=== PATIENT | female | born 1935 | race Caucasian/White ===

== ENCOUNTER → 2017-09-18 | Outpatient (CLI) | payer MEDICARE ==
--- NOTE | 2017-09-18 10:10 | FL ---
EXAMINATION TYPE: FL barium swallow DATE OF EXAM: 09/18/2017 COMPARISON: NONE HISTORY: Dysphasia burning sensation sternal notch TECHNIQUE: A double air contrast UGI study is performed. FINDINGS: Esophagus dilates to normal caliber has normal contour to the gastroesophageal junction. Patient is r eported to be status post Ford fundoplication. Significant hesitancy passing through the gastroesop hageal junction is not evident. Note is made of secondary contraction in the horizontal drinking posi tion with incomplete stripping of the esophageal bolus. IMPRESSIONS: 1. Post Ford fundoplication changes without significant stenosis. 2. Mild presbyesophagus with secondary contractions evident during the exam
== END | disposition home or self-care (01) ==
LOC: RADFLWHC 08:24
PROVIDERS: ATTEND Surgery
DX: K22.8 Other specified diseases of esophagus (principal); R13.10 Dysphagia, unspecified; K21.9 Gastro-esophageal reflux disease without esophagitis
CPT/HCPCS: 74220

== ENCOUNTER → 2017-09-26 | Day surgery (SDC) | payer MEDICARE ==
[2017-09-23 15:44] VITALS: BMI 42.0
[~2017-09-26] MED LIST: GLYCOPYRROLATE 0.2 MG/ML 2 ML VIAL ONE; LACTATED RINGERS 1,000 ML IV SCH; LIDOCAINE 1% 20 ML VIAL (10MG/ML) FOR IV START INTRADERMA ONE; PROPOFOL 10 MG/ML 20 ML VIAL IV ONE; fentaNYL (PF) 50 MCG/ML 2 ML AMP ONE
[2017-09-26 09:09] VITALS: TEMP 97.1
--- NOTE | 2017-09-26 09:26 | P.GSHP ---
History of Present Illness H&P Date: 09/26/17 Chief Complaint: Dysphagia This a 81-year-old female referred from Dr. jensen. Patient has had complaints of dysphagia. Her recent esophagram shows evidence of presbyesophagus. There is no evidence of obstruction or reflux. There is no evidence of recurrent hiatal hernia. The patient presents today for EGD. 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 yeast infection left arm, Stage 4 kidney disease, urinary leakage-wears pad History of Any Multi-Drug Resistant Organisms: MRSA Date of last positivie culture/infection: 8-10 yrs ago MDRO Source:: left eyebrow Past Surgical History: Adenoidectomy, Section, Cholecystectomy, Hernia Repair, Tonsillectomy Additional Past Surgical History / Comment(s): BILAT CATARACTS, breast biopsy- magdalena,02-22-16 lap heraclio Past Anesthesia/Blood Transfusion Reactions: Previous Problems w/ Anesthesia, Motion Sickness Additional Past Anesthesia/Blood Transfusion Reaction / Comment(s): novocaine passed out in dentist chair- rapid heart rate Smoking Status: Never smoker - Past Family History Mother Family Medical History: Pulmonary Embolus Father Family Medical History: AFIB Additional Family Medical History / Comment(s): cabg Medications and Allergies Home Medications Medication Instructions Recorded Confirmed Type Benzonatate [Tessalon Perles] 100 mg PO BID PRN 01/31/16 09/26/17 History Metoprolol Tartrate [Metoprolol 25 mg PO BID 01/31/16 09/26/17 History Tartrate] Spironolactone [Spironolactone] 50 mg PO BID 01/31/16 09/26/17 History Ergocalciferol [Vitamin D2] 50,000 unit PO TH 02/16/16 09/26/17 History Ipratropium-Albuterol Nebulize 3 ml INHALATION RT-BID 02/16/16 09/26/17 History [Duoneb 0.5 mg-3 mg/3 ml Soln] Allergies Allergy/AdvReac Type Severity Reaction Status Date / Time Iodine and Iodide Containing Allergy Rash/Hives Verified 09/26/17 08:58 Produc Penicillins Allergy Dyspnea Verified 09/26/17 08:58 Sulfa (Sulfonamide Allergy Rash/Hives Verified 09/26/17 08:58 Antibiotics) Surgical - Exam Vital Signs Temp Pulse Resp BP Pulse Ox 97.1 F L 67 18 155/80 99 09/26/17 09:08 09/26/17 09:08 09/26/17 09:08 09/26/17 09:08 09/26/17 09:08 - General well developed, no distress - Eyes PERRL - ENT normal pinna - Neck no masses - Respiratory normal expansion - Cardiovascular Rhythm: regular - Abdomen Abdomen: soft, non tender Assessment and Plan Assessment: Dysphagia. We'll perform EGD.
[2017-09-26 10:09] VITALS: BP 136/85; PULSE 73; RESP 16
--- NOTE | 2017-09-26 10:44 | P.OP ---
Date of Procedure: 09/26/17 Preoperative Diagnosis: Dysphagia Postoperative Diagnosis: Mild antral gastritis Mild esophagitis No evidence of significant esophageal stricture. Procedure(s) Performed: EGD Anesthesia: MAC Surgeon: Lenard Bedoya Pathology: other (Antrum) Condition: stable Disposition: PACU Description of Procedure: Patient's placed on the endoscopy table in the lateral position. She received IV sedation. The gastroscope placed oropharynx and passed in the esophagus and into the stomach. Scope was then placed through the pylorus. The first and second portion of the duodenum. Normal. Scope was then brought back the antrum this. Mildly inflamed. A biopsies performed. The scope was then retroflexed and remainder of the stomach appeared normal. The patient did not have any evidence of a hiatal hernia. The GE junction was at 39 cm. The distal esophagus appeared mildly inflamed. The patient's symptoms and dysphagia a 20 mm balloon was quite placed across the GE junction. There did not appear to be evidence of a significant stricture. At this point the balloon was inflated and scope was withdrawn. There is no injury to the stomach or esophagus. The proximal esophagus. Normal. Scope was withdrawn for patient.
== END ==
LOC: ORWHC2ENDO 08:08
PROVIDERS: ATTEND Surgery
DX: R13.10 Dysphagia, unspecified (principal); K29.50 Unspecified chronic gastritis without bleeding; K21.0 Gastro-esophageal reflux disease with esophagitis; J45.909 Unspecified asthma, uncomplicated; Z86.718 Personal history of other venous thrombosis and embolism; I12.9 Hypertensive chronic kidney disease with stage 1 through stage 4 chronic kidney disease, or unspecified chronic kidney disease; N18.4 Chronic kidney disease, stage 4 (severe); R05 Cough; Z77.120 Contact with and (suspected) exposure to mold (toxic); Z79.899 Other long term (current) drug therapy; Z88.0 Allergy status to penicillin; Z88.2 Allergy status to sulfonamides; Z91.041 Radiographic dye allergy status
CPT/HCPCS: 88305; 88342; 43239; 43249; J3010; J2704; C1726

== ENCOUNTER → 2017-12-19 | Outpatient (CLI) | payer MEDICARE ==
--- NOTE | 2017-12-22 10:14 | MM ---
Reason for exam: screening (asymptomatic). Last mammogram was performed 2 years and 6 months ago. History: Patient is postmenopausal. Excisional biopsy of the left breast. 2 excisional biopsies of the right breast. Took estrogen for 7 months beginning at age 58. Took progesterone for 7 months beginning at age 58. Physical Findings: A clinical breast exam by your physician is recommended on an annual basis and results should be correlated with mammographic findings. MG 3D Screening Mammo W/Cad Bilateral CC and MLO view(s) were taken. Prior study comparison: June 16, 2015, right breast MG work up mamm w CAD RT. June 13, 2015, bilateral MG screening mammo w CAD. There are scattered fibroglandular densities. Stable vascular calcifications. There is no discrete abnormality. No significant changes when compared with prior studies. ASSESSMENT: Benign, BI-RAD 2 RECOMMENDATION: Routine screening mammogram of both breasts in 1 year. Manage patient on a clinical basis.
== END | disposition home or self-care (01) ==
LOC: RADMAMWWP 11:13
PROVIDERS: ATTEND Family Medicine
DX: Z12.31 Encounter for screening mammogram for malignant neoplasm of breast (principal)
CPT/HCPCS: 77063; 77067

== ENCOUNTER → 2019-06-23 | Outpatient (CLI) | payer MEDICARE ==
--- NOTE | 2019-06-23 17:57 | MR ---
EXAMINATION TYPE: MR knee RT wo con DATE OF EXAM: 06/23/2019 COMPARISON: NONE HISTORY: Rt knee pain and unstable knee after trauma per order. Pain and swelling after twisting inju ry 3 weeks ago per patient. TECHNIQUE: Multiplanar, multisequence images of the knee is performed without IV contrast. FINDINGS: MEDIAL MENISCUS: Anterior horn is intact without tear. Posterior horn shows irregular signal extendin g to central body where there is emaciation seen best sagittal image 7 consistent with full-thickness tear. LATERAL MENISCUS: Anterior and posterior horns are intact without tear. CRUCIATE LIGAMENTS: The anterior and posterior cruciate ligaments are intact. Some increased signal s een distally sagittal image 16 in the ACL. COLLATERAL LIGAMENTS: The medial collateral ligament and lateral collateral ligament complex are inta ct and unremarkable. EXTENSOR MECHANISM: Visualized quadriceps and patellar tendons are intact. EFFUSION: No significant suprapatellar joint effusion. POPLITEAL CYST: No popliteal/mason cyst. TRICOMPARTMENT SPACES: Severe patellofemoral compartment narrowing. Mild to moderate medial and later al tibiofemoral compartment narrowing. Minimal tricompartment spurring. 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 No full-thickness loss is seen. Some cartilaginous loss medial tibial femoral compartment without f ocal full-thickness loss. BONE MARROW SIGNAL: No focal abnormal marrow signal is appreciated. OTHER: No additional significant abnormality is appreciated. IMPRESSION: 1. Complex full-thickness tear central body and posterior horn of medial meniscus. 2. 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
== END | disposition home or self-care (01) ==
LOC: RADMRIMAIN 16:58
PROVIDERS: ATTEND Family Medicine
DX: S83.231A Complex tear of medial meniscus, current injury, right knee, initial encounter (principal); M17.11 Unilateral primary osteoarthritis, right knee

== ENCOUNTER 2021-02-13 16:41 | Observation (INO) | payer MEDICARE, OTHER ==
--- NOTE | 2021-02-13 18:27 | ED ---
General Adult HPI - General Chief complaint: Neuro Symptoms/Deficit Stated complaint: rt sided vision loss Time Seen by Provider: 02/13/21 17:34 Source: patient, RN notes reviewed Mode of arrival: wheelchair Limitations: no limitations - History of Present Illness Initial comments: 85-year-old white female, alert and oriented 4, comes to the emergency room with complaints of visual loss in right eye at 1530 today while speaking to a canal tender at home. Patient states that initially she started to see circles of lights surrounding the canal tender's head which progressed to a lin cloud and then progressed to complete blackness in right eye only. Patient states that she had no other symptoms, denied headache or weakness. Patient states vision loss last ed about 15 minutes and then completely resolved. Patient states for several months she's been having double vision only when she is staring straight ahead but if she tips her head back or closes one eye vision resolves. Patient states for several years sees use readers but has not seen an palliative care nurse practitioner Patient recently seen her scientific writer Dr. Camarena for chest pain that has not received her labs ahead appointment with him tomorrow. Currently vital signs are stable and patient is asymptomatic with no pain or focal motor deficits. -: hour(s) (3) Time: 15:30 Severity scale (1-10): 0 Associated Symptoms: denies other symptoms - Related Data Home Medications Medication Instructions Recorded Confirmed Spironolactone 50 mg PO BID 01/31/16 02/13/21 Acetaminophen Tab [Tylenol Tab] 1,000 mg PO Q6HR PRN 02/13/21 02/13/21 Albuterol Sulfate [Accuneb] 0.63 mg INHALATION RT-TID PRN 02/13/21 02/13/21 Aspirin EC [Ecotrin Low Dose] 81 mg PO DAILY 02/13/21 02/13/21 Melatonin 20 mg PO HS PRN 02/13/21 02/13/21 Metoprolol Succinate (ER) [Toprol 50 mg PO DAILY 02/13/21 02/13/21 Xl] Nitroglycerin Sl Tabs [Nitrostat] 0.4 mg SUBLINGUAL Q5M PRN 02/13/21 02/13/21 Rosuvastatin [Crestor] 10 mg PO HS 02/13/21 02/13/21 Ubidecarenone [Co Q-10] 200 mg PO HS 02/13/21 02/13/21 Allergies Allergy/AdvReac Type Severity Reaction Status Date / Time Iodine and Iodide Containing Allergy Rash/Hives Verified 02/13/21 18:41 Produc Penicillins Allergy Dyspnea Verified 02/13/21 18:41 Sulfa (Sulfonamide Allergy Rash/Hives Verified 02/13/21 18:41 Antibiotics) Patient : No Review of Systems ROS Statement: Those systems with pertinent positive or pertinent negative responses have been documented in the HPI. ROS Other: All systems not noted in ROS Statement are negative. 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), hx ulcer, hiatal hernia, yeast infection left arm, "kidneys functioning at 34", urinary leakage-wears pad History of Any Multi-Drug Resistant Organisms: MRSA Date of last positivie culture/infection: 8-10 yrs ago MDRO Source:: left eyebrow Past Surgical History: Section, Cholecystectomy, Tonsillectomy Additional Past Surgical History / Comment(s): BILAT CATARACTS, breast biopsy-magdalena,6-9-16 lap heraclio Past Anesthesia/Blood Transfusion Reactions: Previous Problems w/ Anesthesia, Motion Sickness Additional Past Anesthesia/Blood Transfusion Reaction / Comment(s): novocaine passed out in dentist chair- rapid heart rate Past Psychological History: No Psychological Hx Reported Smoking Status: Never smoker Past Alcohol Use History: None Reported Past Drug Use History: None Reported - Past Family History Mother Family Medical History: Pulmonary Embolus Father Family Medical History: AFIB Additional Family Medical History / Comment(s): cabg General Exam Limitations: no limitations General appearance: alert, in no apparent distress Head exam: Present: atraumatic, normocephalic, normal inspection Eye exam: Present: normal appearance, PERRL, EOMI. Absent: scleral icterus, conjunctival injection, periorbital swelling Pupils: Present: normal accommodation ENT exam: Present: normal exam, normal oropharynx, mucous membranes moist Neck exam: Present: normal inspection, full ROM. Absent: tenderness, meningismus, lymphadenopathy, thyromegaly Respiratory exam: Present: normal lung sounds bilaterally. Absent: respiratory distress, wheezes, rales, rhonchi, stridor, chest wall tenderness, accessory mus susan use, decreased breath sounds Cardiovascular Exam: Present: regular rate, normal rhythm, normal heart sounds. Absent: systolic murmur, diastolic murmur, rubs, gallop, clicks GI/Abdominal exam: Present: soft, normal bowel sounds. Absent: distended, tenderness, guarding, rebound, rigid Rectal exam: Present: deferred Extremities exam: Present: normal inspection, full ROM, normal capillary refill. Absent: tenderness, pedal edema, joint swelling, calf tenderness Back exam: Present: normal inspection, full ROM. Absent: tenderness, CVA tenderness (R), CVA tenderness (L), muscle spasm, paraspinal tenderness, vertebral tenderness Neurological exam: Present: alert, oriented X3, CN II-XII intact. Absent: motor sensory deficit Expanded Neurological exam: Present: protecting the airway. Absent: inattentive, evp general counsel tive aphasia, expressive aphasia, total aphasia, tremor Patient oriented to: Present: person, place, time Speech: Present: fluid speech Cranial nerves: EOM's Intact: Normal, Gag Reflex: Normal, Tongue Deviation: Normal, Facial Sensation: Normal, Facial Palsy with Forehead Movement: Normal, Facial Palsy without Forehead Movement: Normal Cerebellar function: Finger to Nose: Normal, Heel to Jay: Normal Motor strength exam: RUE: 5, LUE: 5, RLE: 5, LLE: 5 Eye Response: (4) open spontaneously Motor Response: (6) obeys commands Verbal Response: (5) oriented Sandee Total: 15 Psychiatric exam: Present: normal affect, normal mood Skin exam: Present: warm, dry, intact, normal color. Absent: rash Course Vital Signs 02/13/21 02/13/21 02/13/21 16:44 18:40 20:08 Temperature 97.7 F 98.2 F Pulse Rate 72 65 64 Respiratory 16 18 16 Rate Blood Pressure 164/73 148/63 138/67 O2 Sat by Pulse 98 99 98 Oximetry EKG Findings - EKG Results: EKG: WNL (Ventricular rate 66, CT interval 0.17, QRS 0.86, QTC 0.434; sinus rhythm) Medical Decision Making - Medical Decision Making Patient had complete loss of vision in right eye for approximately 15 minutes at home at 1530 today, which resolved prior to arrival to the emergency room. Patient has been asymptomatic while in the emergency room. CT shows atrophy with periventricular white matter ischemic type changes and old left caudate lacunar infarct, no ICB, no lesions. chest x-ray shows no acute pulmonary process. Troponin is negative at 0.012, glucose is 83. BUN of 23 and creatinine is 1.43 patient states that she cannot tolerate IV contrast is severe ALLERGIC reactions and swelling. Patient will be admitted to Dr. Potter with neurology on consult. Case discussed with Dr. Cedeno. Patient agreeable to being admitted. - Lab Data Result diagrams: 02/13/21 18:30 02/13/21 18:30 Lab Results 02/13/21 02/13/21 02/13/21 Range/Units 18:30 18:30 18:30 WBC 7.0 (3.8-10.6) k/uL RBC 4.24 (3.80-5.40) m/uL Hgb 13.5 (11.4-16.0) gm/dL Hct 43.5 (34.0-46.0) % MCV 102.5 H (80.0-100.0) fL MCH 31.8 (25.0-35.0) pg MCHC 31.0 (31.0-37.0) g/dL RDW 13.6 (11.5-15.5) % Plt Count 162 (150-450) k/uL MPV 9.5 Neutrophils % 65 % Lymphocytes % 24 % Monocytes % 6 % Eosinophils % 2 % Basophils % 1 % Neutrophils # 4.5 (1.3-7.7) k/uL Lymphocytes # 1.7 (1.0-4.8) k/uL Monocytes # 0.4 (0-1.0) k/uL Eosinophils # 0.2 (0-0.7) k/uL Basophils # 0.0 (0-0.2) k/uL Macrocytosis Slight PT 9.7 (9.0-12.0) sec INR 0.9 (<1.2) APTT 21.7 L (22.0-30.0) sec Sodium 138 (137-145) mmol/L Potassium 4.7 (3.5-5.1) mmol/L Chloride 104 (98-107) mmol/L Carbon Dioxide 26 (22-30) mmol/L Anion Gap 8 mmol/L BUN 23 H (7-17) mg/dL Creatinine 1.43 H (0.52-1.04) mg/dL Est GFR (CKD-EPI)AfAm 38 (>60 ml/min/1.73 sqM) Est GFR (CKD-EPI)NonAf 33 (>60 ml/min/1.73 sqM) Glucose 83 (74-99) mg/dL Calcium 9.7 (8.4-10.2) mg/dL Total Bilirubin 0.3 (0.2-1.3) mg/dL AST 30 (14-36) U/L ALT 22 (4-34) U/L Alkaline Phosphatase 82 (38-126) U/L Troponin I (0.000-0.034) ng/mL Total Protein 6.6 (6.3-8.2) g/dL Albumin 4.4 (3.5-5.0) g/dL 02/13/21 Range/Units 18:30 WBC (3.8-10.6) k/uL RBC (3.80-5.40) m/uL Hgb (11.4-16.0) gm/dL Hct (34.0-46.0) % MCV (80.0-100.0) fL MCH (25.0-35.0) pg MCHC (31.0-37.0) g/dL RDW (11.5-15.5) % Plt Count (150-450) k/uL MPV Neutrophils % % Lymphocytes % % Monocytes % % Eosinophils % % Basophils % % Neutrophils # (1.3-7.7) k/uL Lymphocytes # (1.0-4.8) k/uL Monocytes # (0-1.0) k/uL Eosinophils # (0-0.7) k/uL Basophils # (0-0.2) k/uL Macrocytosis PT (9.0-12.0) sec INR (<1.2) APTT (22.0-30.0) sec Sodium (137-145) mmol/L Potassium (3.5-5.1) mmol/L Chloride (98-107) mmol/L Carbon Dioxide (22-30) mmol/L Anion Gap mmol/L BUN (7-17) mg/dL Creatinine (0.52-1.04) mg/dL Est GFR (CKD-EPI)AfAm (>60 ml/min/1.73 sqM) Est GFR (CKD-EPI)NonAf (>60 ml/min/1.73 sqM) Glucose (74-99) mg/dL Calcium (8.4-10.2) mg/dL Total Bilirubin (0.2-1.3) mg/dL AST (14-36) U/L ALT (4-34) U/L Alkaline Phosphatase (38-126) U/L Troponin I <0.012 (0.000-0.034) ng/mL Total Protein (6.3-8.2) g/dL Albumin (3.5-5.0) g/dL Disposition Clinical Impression: TIA (transient ischemic attack) Disposition: ADMITTED IP TO THIS HOSP Condition: Good Referrals: Francine Rosas MD [Primary Care Provider] - 1-2 days Decision Date: 02/13/21 Decision Time: 21:47
[2021-02-13 18:39] LABS: Basophils % (A) 1 %; Eosinophils # (A) 0.2 k/uL (0-0.7); Eosinophils % (A) 2 %; HCT 43.5 % (34.0-46.0); HGB 13.5 gm/dL (11.4-16.0); Lymphocytes # (A) 1.7 k/uL (1.0-4.8); Lymphocytes % (A) 24 %; MCH 31.8 pg (25.0-35.0); MCV 102.5 fL (80.0-100.0); Macrocytosis Slight; Mean Platelet Volume 9.5; Monocytes # (A) 0.4 k/uL (0-1.0); Monocytes % (A) 6 %; Neutrophils # (A) 4.5 k/uL (1.3-7.7); Neutrophils % (A) 65 %; Platelet Count 162 k/uL (150-450); RBC 4.24 m/uL (3.80-5.40); RDW 13.6 % (11.5-15.5)
[2021-02-13 18:46] LABS: Albumin 4.4 g/dL (3.5-5.0); Calcium 9.7 mg/dL (8.4-10.2); Potassium 4.7 mmol/L (3.5-5.1); Total Bilirubin 0.3 mg/dL (0.2-1.3); Total Protein 6.6 g/dL (6.3-8.2)
[2021-02-13 19:03] LABS: INR 0.9 (<1.2); Partial Thromboplastin Time 21.7 sec (22.0-30.0); Prothrombin Time 9.7 sec (9.0-12.0)
--- NOTE | 2021-02-13 19:44 | CT ---
EXAMINATION TYPE: CT brain wo con DATE OF EXAM: 02/13/2021 COMPARISON: 09/21/2012 INDICATION: visual changes, no head injury DLP: 1090.4 mGycm, Automated exposure control for dose reduction was used. CONTRAST: None CT of the brain is performed utilizing 3 mm thick sections through the posterior fossa and 3 mm thick sections through the remaining calvarium. Study is performed within 24 hours of arrival to the hosp [place]. No abnormal hyperdensity is present to suggest an acute intracranial hemorrhage. No mass lesion is evident. No acute infarcts are evident. There is an old lacunar infarct in the left caudate head. This may hav e been present 2012. Periventricular white matter hypodensity is present, likely on the basis of trailer steerer manish white matter ischemic changes. Ventricles and sulci are mildly prominent for the patient age. Paranasal sinuses and mastoid air cells within the [id number] are clear. IMPRESSIONS: 1. Atrophy with periventricular white matter ischemic type changes. 2. 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
--- NOTE | 2021-02-13 20:47 | XR ---
EXAMINATION TYPE: XR chest 2V DATE OF EXAM: 02/13/2021 COMPARISON: 11/10/2013 INDICATION: Altered mental status TECHNIQUE: Frontal and lateral views of the chest are obtained. FINDINGS: The heart size is normal. The pulmonary vasculature is normal. The lungs are clear. IMPRESSION: 1. No acute pulmonary process.
[2021-02-13] MEDS ORDERED: NALOXONE 0.4 MG/ML 1 ML VIAL IV PRN (21:47)
[2021-02-13] MEDS ORDERED: ATORVASTATIN 80 MG TAB PO STA (21:50)
[2021-02-13] MEDS: SODIUM CHLORIDE 0.9% 1,000 ML IV SCH (22:18)
[2021-02-13] MEDS: CLOPIDOGREL 75 MG TAB PO SCH (22:20)
[2021-02-14] MEDS: SPIRONOLACTONE 25 MG TAB PO SCH ×2 (09:02→22:00)
[2021-02-14] MEDS: METOPROLOL SUCCINATE (ER) 50 MG TAB.ER.24H PO SCH (09:02)
[2021-02-14] MEDS: ASPIRIN 81 MG PO SCH (09:03)
[2021-02-14] MEDS: SODIUM CHLORIDE 0.9% 1,000 ML IV SCH (13:48)
[2021-02-14] MEDS: PANTOPRAZOLE 40 MG TABLET PO SCH (13:50)
--- NOTE | 2021-02-14 15:08 | P.CNNES ---
History of Present Illness Consult date: 02/14/21 Requesting physician: Len Sainz Reason for Consult: TIA History of Present Illness: Patient is a 85-year-old female came to the hospital yesterday at 4:41 PM for acute loss of vision right eye. Patient states that she was talking to her plant and instrument engineer at around 3 PM, when she suddenly noticed a funny feeling in her vision. When she looked at him, it appeared his face was coming apart in pieces. Then she saw polka dots moving around the visual field in the right eye. Her vision started getting worse and then everything turned black. She closed her left eye and she could not see anything. When she closed the right eye, she was able to see everything. It was monocular blindness right eye. The symptoms lasted for 10-15 minutes. It started slowly going away and symptoms completely went away. She had no headache or any neurological symptoms whatsoever. Patient got concerned and came to the ER. Vital signs on arrival blood pressure 164/73, pulse is 72, temperature 97.7 CT head showed atrophy with periventricular white matter ischemic Changes. 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 Chest x-ray showed no acute process. EKG shows normal sinus rhythm. Blood test shows normal CBC with elevated MCV 102.5. PT/PTT normal. Chem-20 is significant only for BUN 23, creatinine 1.43. Troponin negative. Fuller virus PCR negative. Patient had an normal MRA of [place] on 06/06/2015 performed for he adache and diplopia. Her MRI of the brain was also normal except for some small periventricular white matter changes. Patient takes Crestor 10 mg, aspirin 81 mg, metoprolol XL 50 mg daily, spironola ctone 50 mg twice a day and albuterol. Patient in the ER has been started on Plavix 75 mg as well. Patient says that she has history of diplopia off and on for last 1 year. It used to be sporadic but not occurring every day. If she tilts her head backwards and puts her head in certain way, she sees double. Only if she has to look straight ahead to have a single vision. Patient apparently had MRI of the brain performed in 2014 for double vision. Patient does not remember having double vision for that long period of time. She had episodes in the past that consisted of blurred vision like looking through water. She denies any history of migraines. Patient states that about 4 weeks ago she was started on aspirin 81 mg daily by her veterinary virus serum inspector as she was diagnosed with a possible silent AR. Patient wears glasses for reading. She has not seen any metal pattern maker for her intermittent double vision. Patient denies diabetes. She does have hypertension. Never smoked does not drink alcohol. Patient is ALLERGIC to iodine containing dyes. Review of Systems as above in detail. All other review of systems completely unremarkable. Denies any chest pain shortness of breath wheezing or cough. Denies any slurred speech facial droop. Denies any sore throat, fever or chills. Denies abdominal pain nausea vomiting diarrhea. Denies any leg pain. 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), hx ulcer, hiatal hernia, yeast infection left arm, "kidneys functioning at 34", urinary leakage-wears pad History of Any Multi-Drug Resistant Organisms: MRSA Date of last positivie culture/infection: 8-10 yrs ago MDRO Source:: left eyebrow Past Surgical History: Section, Cholecystectomy, Tonsillectomy Additional Past Surgical History / Comment(s): BILAT CATARACTS, breast biopsy-[place],02-22-16 lap heraclio Past Anesthesia/Blood Transfusion Reactions: Previous Problems w/ Anesthesia, Motion Sickness Additional Past Anesthesia/Blood Transfusion Reaction / Comment(s): novocaine passed out in dentist chair- rapid heart rate Past Psychological History: No Psychological Hx Reported Smoking Status: Never smoker Past Alcohol Use History: None Reported Past Drug Use History: None Reported - Past Family History Mother Family Medical History: Pulmonary Embolus Father Family Medical History: AFIB Additional Family Medical History / Comment(s): cabg Medications and Allergies Home Medications Medication Instructions Recorded Confirmed Type Spironolactone 50 mg PO BID 01/31/16 02/13/21 History Acetaminophen Tab [Tylenol Tab] 1,000 mg PO Q6HR PRN 02/13/21 02/13/21 History Albuterol Sulfate [Accuneb] 0.63 mg INHALATION RT-TID PRN 02/13/21 02/13/21 History Aspirin EC [Ecotrin Low Dose] 81 mg PO DAILY 02/13/21 02/13/21 History Melatonin 20 mg PO HS PRN 02/13/21 02/13/21 History Metoprolol Succinate (ER) [Toprol 50 mg PO DAILY 02/13/21 02/13/21 History Xl] Nitroglycerin Sl Tabs [Nitrostat] 0.4 mg SUBLINGUAL Q5M PRN 02/13/21 02/13/21 History Rosuvastatin [Crestor] 10 mg PO HS 02/13/21 02/13/21 History Ubidecarenone [Co Q-10] 200 mg PO HS 02/13/21 02/13/21 History Allergies Allergy/AdvReac Type Severity Reaction Status Date / Time Iodine and Iodide Containing Allergy Rash/Hives Verified 02/13/21 18:41 Produc Penicillins Allergy Dyspnea Verified 02/13/21 18:41 Sulfa (Sulfonamide Allergy Rash/Hives Verified 02/13/21 18:41 Antibiotics) Physical Examination - Vital Signs Vital Signs: Vital Signs Temp Pulse Resp BP Pulse Ox 02/14/21 08:08 97.9 F 66 18 126/58 97 02/14/21 06:43 98.0 F 71 18 109/49 98 02/14/21 01:08 98.1 F 67 18 135/56 98 02/13/21 23:01 67 18 132/75 97 02/13/21 20:08 64 16 138/67 98 02/13/21 18:40 98.2 F 65 18 148/63 99 02/13/21 16:44 97.7 F 72 16 164/73 98 Intake and Output 02/13/21 02/14/21 02/14/21 22:59 06:59 14:59 Other: Weight 102.058 kg Patient is an elderly female, very pleasant, in no acute distress. Patient is alert awake oriented to time place and person. Speech and language functions are normal. Attention, concentration and fund of knowledge is adequate. On cranial examination, pupils are equal in size, round and reacting to light, visual fernandez are full on confrontation, with no neglect on double simultaneous stimulation, extraocular muscles are intact with no nystagmus. Patient was sometimes seeing double vision with the lateral gaze mainly on the left. Face is symmetric, tongue protrudes to the midline. Palatal elevation and sensation normal, hearing is moderate to severely decreased for finger tapping bilatera lly, left worse than right. 4 usual conversation is is mildly decreased. Facial sensation normal. Shoulder shrug normal. On muscle strength testing, there is no pronator drift and the strength is normal in arms and legs distally and proximally. Deep tendon reflexes are 1 in the upper and lower limbs and plantars downgoing. Sensory to touch is equal with no neglect. Cerebellar function showed no ataxia for [id number] testing. No dysdiadochokinesia. Tone and bulk of muscles normal. Gait deferred. Patient has no problems with gait otherwise. Does not use any device. On general examination, there is no carotid bruit or murmur, S1-S2 audible. Abdomen is soft nontender. Chest is clear. Peripheral pulses are present. Patient has mild peripheral edema. Results - Laboratory Findings CBC and BMP: 02/13/21 18:30 02/13/21 18:30 Abnormal Lab Findings: Abnormal Labs 02/13/21 02/13/21 02/13/21 18:30 18:30 18:30 MCV 102.5 H APTT 21.7 L BUN 23 H Creatinine 1.43 H Assessment and Plan Assessment: * Amaurosis fugax, right eye, symptoms resolved in 10-15 minutes. Need further workup to evaluate for embolic source. * Long-standing history of intermittent diplopia, unclear cause. * Macrocytosis * Hypertension * Coronary artery disease * Hyperlipidemia * Mild renal insufficiency Plan: * Patient will undergo MRI of the brain to rule out CVA. MRA of the head to rule out any aneurysm or other intracranial atherosclerotic disease. * Carotid Doppler to rule out stenosis. * 2-D echo with bubble study to rule out PFO or other embolic source. * Fasting a.m. lipid panel, hemoglobin A1c. * Patient has macrocytosis, we will check B12 and folate. * Agree with starting dual antiplatelet medications with aspirin 81 mg and Plavix 75 mg. * We will also check acetylcholine receptor antibodies rule out ocular myasthenia. * Patient will need ophthalmology consultation as well. May get it as outpatient.
--- NOTE | 2021-02-14 17:05 | US ---
EXAMINATION TYPE: US carotid duplex BILAT DATE OF EXAM: 02/14/2021 COMPARISON: 06/13/2015 CLINICAL HISTORY: TIA, amaurosis fugax, right eye. TIA EXAM MEASUREMENTS: RIGHT: Peak Systolic Velocity (PSV) cm/sec ----- Right CCA: 81.3 ----- Right ICA: 63.8 ----- Right ECA: 100.2 ICA/CCA ratio: 0.8 RIGHT: End Diastole cm/sec ----- Right CCA: 14.4 ----- Right ICA: 10.0 ----- Right ECA: 100.2 LEFT: Peak Systolic Velocity (PSV) cm/sec ----- Left CCA: 59.5 ----- Left ICA: 71.1 ----- Left ECA: 49.3 ICA/CCA ratio: 1.2 LEFT: End Diastole cm/sec ----- Left CCA: 11.5 ----- Left ICA: 14.4 ----- Left ECA: 0 VERTEBRALS (direction of flow): Right Vertebral: Antegrade Left Vertebral: Antegrade Rhythm: Normal No evidence of hemodynamically significant stenosis of the common or internal carotid arteries. There is mild atherosclerotic plaque at the bilateral common carotid artery bifurcations. Antegrade flow a t the vertebral arteries. IMPRESSION: 1. Less than 50% stenosis of the bilateral internal carotid arteries. Mild atherosclerotic plaque at the bilateral common carotid artery bifurcations. No evidence of hemodynamically significant stenosis . Criteria for Assigning % of Stenosis / Diameter reduction (Estimation based on the indirect measurements of the internal carotid artery velocities (ICA PSV). 1. Normal (no stenosis)=ICA PSV < 125 cm/s: ratio < 2.0: ICA EDV<40 cm/s. 2. Less than 50% stenosis=ICA PSV < 125 cm/s: ratio < 2.0: ICA EDV<40 cm/s. 3. 50 to 69% stenosis=ICA PSV of 125 to 230 cm/s: ration 2.0 ? 4.0: ICA EDV 40-100 cm/s. 4. Greater than 70% stenosis to near occlusion= ICA PSV > 230 cm/s: ratio > 4.0: ICA EDV > 100 cm/s. 5. Near occlusion= ICA PSV velocities may be low or undetectable: variable ratio and ICA EDV. 6. Total occlusion=unable to detect flow.
[2021-02-14] MEDS ORDERED: PANTOPRAZOLE 40 MG TABLET PO SCH (17:30)
[2021-02-14] MEDS ORDERED: NON FORMULARY DRUG (Ubidecarenone [Co Q-10] 100 MG Capsule) PO SCH (21:00)
[2021-02-14] MEDS ORDERED: ATORVASTATIN 80 MG TAB PO SCH (21:00)
[2021-02-14] MEDS: CLOPIDOGREL 75 MG TAB PO SCH (22:00)
--- NOTE | 2021-02-14 23:20 | P.HPIM ---
History of Present Illness H&P Date: 02/14/21 Chief Complaint: loss of vision Karli Hughes is an 85 yo F with PMH of HLD, CKD who presented to the ED after experiencing transient R sided blindness. She states she was at her weight inspector's talking with him when she noticed he became fuzzy and like static and then his head deconstructed then the rest of him. She tried closing her eyes and when she reopened them had complete R sided blindness. Denies any dizziness, diaphoresis, palpitations or weakness. Symptoms resolved on their own, she called her PCP and was instructed to come to the hospital. On presentation BP stable, labs significant for Cr 1.4. CT head no acute process. Review of Systems All systems: negative Constitutional: Denies chills, Denies fever Eyes: denies blurred vision, denies pain Ears, nose, mouth and throat: Denies headache, Denies sore throat Cardiovascular: Denies chest pain, Denies shortness of breath Respiratory: Denies cough Gastrointestinal: Denies abdominal pain, Denies diarrhea, Denies nausea, Denies vomiting Genitourinary: Denies dysuria, Denies hematuria Musculoskeletal: Denies myalgias Integumentary: Denies pruritus, Denies rash Neurological: Reports double vision, Reports visual changes, Denies numbness, Denies vertigo, Denies weakness Psychiatric: Denies anxiety, Denies depression Endocrine: Denies fatigue, Denies weight change 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), hx ulcer, hiatal hernia, yeast infection left arm, "kidneys functioning at 34", urinary leakage-wears pad History of Any Multi-Drug Resistant Organisms: MRSA Date of last positivie culture/infection: 8-10 yrs ago MDRO Source:: left eyebrow Past Surgical History: Section, Cholecystectomy, Tonsillectomy Additional Past Surgical History / Comment(s): BILAT CATARACTS, breast biopsy-[place],6-9-16 lap heraclio Past Anesthesia/Blood Transfusion Reactions: Previous Problems w/ Anesthesia, Motion Sickness Additional Past Anesthesia/Blood Transfusion Reaction / Comment(s): novocaine passed out in dentist chair- rapid heart rate Past Psychological History: No Psychological Hx Reported Smoking Status: Never smoker Past Alcohol Use History: None Reported Past Drug Use History: None Reported - Past Family History Mother Family Medical History: Pulmonary Embolus Father Family Medical History: AFIB Additional Family Medical History / Comment(s): cabg Medications and Allergies Home Medications Medication Instructions Recorded Confirmed Type Spironolactone 50 mg PO BID 01/31/16 02/13/21 History Acetaminophen Tab [Tylenol Tab] 1,000 mg PO Q6HR PRN 02/13/21 02/13/21 History Albuterol Sulfate [Accuneb] 0.63 mg INHALATION RT-TID PRN 02/13/21 02/13/21 His tory Aspirin EC [Ecotrin Low Dose] 81 mg PO DAILY 02/13/21 02/13/21 History Melatonin 20 mg PO HS PRN 02/13/21 02/13/21 History Metoprolol Succinate (ER) [Toprol 50 mg PO DAILY 02/13/21 02/13/21 History Xl] Nitroglycerin Sl Tabs [Nitrostat] 0.4 mg SUBLINGUAL Q5M PRN 02/13/21 02/13/21 Hi story Rosuvastatin [Crestor] 10 mg PO HS 02/13/21 02/13/21 History Ubidecarenone [Co Q-10] 200 mg PO HS 02/13/21 02/13/21 History Allergies Allergy/AdvReac Type Severity Reaction Status Date / Time Iodine and Iodide Containing Allergy Rash/Hives Verified 02/13/21 18:41 Produc Penicillins Allergy Dyspnea Verified 02/13/21 18:41 Sulfa (Sulfonamide Allergy Rash/Hives Verified 02/13/21 18:41 Antibiotics) Physical Exam Vitals: Vital Signs Temp Pulse Pulse Resp BP BP Pulse Ox 02/14/21 21:42 98.2 F 71 18 132/75 97 02/14/21 20:25 74 16 139/60 98 02/14/21 17:19 98.2 F 82 16 153/74 98 02/14/21 15:56 70 18 143/66 98 02/14/21 08:08 97.9 F 66 18 126/58 97 02/14/21 06:43 98.0 F 71 18 109/49 98 02/14/21 01:08 98.1 F 67 18 135/56 98 Intake and Output 02/14/21 02/14/21 02/15/21 14:59 22:59 06:59 Other: # Voids 1 Weight 102.058 kg General: well nourished, well developed, NAD. Vitals reviewed Eyes: PERRL, EOMI, conjunctiva normal HENT: normocephalic, mucus membranes moist Neck: supple, no JVD Lungs: normal respiratory effort, no wheezes or rales CV: Regular rate and rhythm, no murmur. Peripheral pulses 2+ Abdomen: soft, nondistended, no organomegaly Lymph: no cervical or axillary LAD Skin: warm and dry. Neuro: A&Ox3, normal mood and affect Results CBC & Chem 7: 02/13/21 18:30 02/13/21 18:30 Thrombosis Risk Factor Assmnt - Choose All That Apply Each Factor Represents 1 point: Obesity (BMI >25) Each Risk Factor Represents 3 Points: Age 75 years or older Other congenital or acquired thrombophilia - If yes, enter type in comment: No Thrombosis Risk Factor Assessment Total Risk Factor Score: 4 Thrombosis Risk Factor Assessment Level: Moderate Risk Assessment and Plan (1) Hemianopia of right eye Current Visit: Yes Status: Acute Code(s): H53.461 - HOMONYMOUS BILATERAL FIELD DEFECTS, RIGHT SIDE SNOMED Code(s): 48701007 (2) TIA (transient ischemic attack) Current Visit: Yes Status: Acute Code(s): G45.9 - TRANSIENT CEREBRAL ISCHEMIC ATTACK, UNSPECIFIED SNOMED Code(s): 591449330 (3) GERD (gastroesophageal reflux disease) Current Visit: No Status: Acute Code(s): K21.9 - GASTRO-ESOPHAGEAL REFLUX DISEASE WITHOUT ESOPHAGITIS SNOMED Code(s): 734068152 Plan: 1. Heianopia of R vision field. Suspect TIA. Start plavix and lipitor, Neurology consulted for further evaluation 2. HTN. Continue metoprolol and aldactone
[2021-02-15] MEDS: SODIUM CHLORIDE 0.9% 1,000 ML IV SCH ×2 (00:24→15:17)
[2021-02-15] MEDS: ACETAMINOPHEN TAB 325 MG TAB PO PRN ×2 (07:57→20:47)
[2021-02-15] MEDS: SPIRONOLACTONE 25 MG TAB PO SCH ×2 (07:58→20:48)
[2021-02-15] MEDS: ASPIRIN 81 MG PO SCH (07:59)
[2021-02-15] MEDS: PANTOPRAZOLE 40 MG TABLET PO SCH (07:59)
[2021-02-15] MEDS: METOPROLOL SUCCINATE (ER) 50 MG TAB.ER.24H PO SCH (07:59)
[2021-02-15 10:54] LABS: Chol/HDL Ratio 3.55
--- NOTE | 2021-02-15 12:45 | ECHOF ---
Referral Reason:TIA, rule out embolic source MEASUREMENTS -------- HEIGHT: 157.5 cm WEIGHT: 106.6 kg BP: FINDINGS -------- Limited Study Echo & Stress Cardiology 02/03/21: Bubble study R/O Pfo. CONCLUSIONS -------- 1. Limited Study Echo & Stress Cardiology 02/03/21: Bubble study R/O Pfo. no bubbles crossed the sep zach PAIN COORDINATOR: Manjula Lee RDCS
[2021-02-15] MEDS ORDERED: LORazepam 2 MG/ML INJ IV STA (13:46)
--- NOTE | 2021-02-15 15:48 | MR ---
EXAMINATION TYPE: MR angio head wo con DATE OF EXAM: 02/15/2021 COMPARISON: 06/06/2015 HISTORY: TIA CONTRAST: None TECHNIQUE: Multiplanar multiecho imaging on a 3.0 Yasmin magnet is performed through the [place]. 3-D [id number] imaging is performed. Source images are reviewed on the computer in the axi al plane. Reconstructed images rotating on the computer are reviewed. FINDINGS: The internal carotid arteries bifurcate normally into A1 and M1 segments. The A2 segments are normal. Middle cerebral artery branches are normal. Anterior communicating artery is patent. The right posterior communicating artery is patent. The left posterior communicating artery is patent and terminates in the left posterior cerebral arter y. Vertebrobasilar arteries within the [id number]-hfzu are normal. Right Posterior cerebral vasculature i s normal. Left posterior cerebral artery is the termination of the left posterior communicating ana laura ry. No suspicious aneurysm or aneurysmal dilatation is evident. No obstructions are identified. No significant flow-limiting stenosis is evident. IMPRESSIONS: 1. NORMAL VARIATION MRA [place].
--- NOTE | 2021-02-15 15:50 | MR ---
Brain MRI without contrast HISTORY: TIA Multiplanar multisequence imaging through the brain correlated to CT brain 02/13/2021 Cortical atrophy is likely age-related. Confluent and scattered periventricular, pericallosal, subcor tical hyperintensities are present on inversion recovery T2-weighted sequences. There are normal vasc ular flow voids. There is no restricted diffusion. No hemorrhage or hydrocephalus. The corpus callosu m, pituitary, cervical medullary junction, cerebellopontine angles are within normal limits. The orbi ts show symmetric appearance. There is mild inflammatory change in the ethmoid air cells. IMPRESSION: Age-related changes of atrophy and chronic small vessel ischemia.
--- NOTE | 2021-02-15 17:05 | P.PN ---
Subjective Progress Note Date: 02/15/21 Patient is sitting comfortably in the recliner. Offers no complaints. No further visual symptoms. No further neurological symptoms. Objective - Vital Signs Vital signs: Vital Signs Temp 98.4 F 02/15/21 14:47 Pulse 74 02/15/21 14:47 Resp 18 02/15/21 14:47 BP 132/76 02/15/21 14:47 Pulse Ox 97 02/15/21 14:47 Intake & Output 02/14/21 02/15/21 02/15/21 18:59 06:59 18:59 Intake Total 240 Balance 240 Weight 102.058 kg Intake: Oral 240 Other: Voiding Method Toilet Toilet # Voids 2 3 - Exam Patient is an elderly female, in no distress. Patient is alert awake oriented to time place and person. Speech and language functions are normal. Attention, concentration and fund of knowledge is adequate. On cranial examination, pupils are round and reacting to light, visual fernandez are full on confrontation, extraocular muscles are intact with no nystagmus. Face is symmetric, tongue protrudes to the midline. Palatal elevation and sensation normal, hearing is decreased moderate to severely for finger rubbing, left worse and shoulder shrug normal, facial sensation normal. Shoulder shrug normal. On muscle strength testing, there is no pronator drift and the strength is normal in arms and legs distally and proximally. Deep tendon reflexes are symmetric, plantars downgoing. Sensory to touch is equal with no neglect. Cerebellar function showed no ataxia for fbmqje-wn-sedo testing. No dysdiadochokinesia. Tone and bulk of muscles normal. Gait normal. On general examination, there is no carotid bruit or murmur, S1-S2 audible. Abdomen is soft nontender. Chest is clear. Peripheral pulses are present. No edema. - Labs CBC & Chem 7: 02/13/21 18:30 02/13/21 18:30 Labs: Abnormal Lab Results - Last 24 Hours (Table) 02/15/21 Range/Units 04:35 HDL Cholesterol 38.0 L (40.0-60.0) mg/dL Assessment and Plan Assessment: * Amaurosis fugax, right eye, symptoms resolved in 10-15 minutes. No acute stroke noted on the MRI of the brain. * Long-standing history of intermittent diplopia, unclear cause. * Macrocytosis * Hypertension * Coronary artery disease * Hyperlipidemia * Mild renal insufficiency Plan: * MRI of the brain showed age-related changes of atrophy and chronic small vessel ischemia. * MRA of the head showed normal variation MRA [place]. No aneurysm. * Carotid Doppler showed less than 50% stenosis of bilateral ICA. Mild atherosclerotic plaque at the bilateral common carotid artery bifurcations. Antegrade flow in both vertebral arteries. * 2-D echo with bubble study was negative for any PFO. No bubbles crossed the septum. 2-D echo performed recently outpatient showed normal left-ventricular size with normal function. EF is 55%. There is mild left ventricular hypertrophy. Normal right ventricular size and normal function. There is mild to moderate aortic regurgitation. * Fasting a.m. lipid panel with cholesterol 135, LDL 75, HDL 38 and triglycerides 110. Patient was on Crestor 10 mg daily. Currently switched to Lipitor 80 mg. Patient states she had side effects from statins with leg pains in the past. We will increase Lipitor to 40 mg.. If cannot tolerate then may revert back to Crestor. * Hemoglobin A1c 5.5. * Patient has macrocytosis, B12 464 and folate pending. * Agree with starting dual antiplatelet medications with aspirin 81 mg and Plavix 75 mg. After 3 weeks, stop aspirin and maintain on single agent Plavix 75 mg daily. * Await acetylcholine receptor antibodies rule out ocular myasthenia. * Patient will need ophthalmology consultation as well. May get it as outpatien t. * Patient has received moderna Covid vaccination first dose on 01/25/2021. Doubt would be related to the vaccination. Her second dose is due on 03/06/2021.
--- NOTE | 2021-02-15 18:10 | P.PN ---
Subjective Progress Note Date: 02/15/21 Karli Hughes is an 85 yo F with PMH of HLD, CKD who presented to the ED after experiencing transient R sided blindness. She states she was at her rn plastic surgery's talking with him when she noticed he became fuzzy and like static and then his head deconstructed then the rest of him. She tried closing her eyes and when she reopened them had complete R sided blindness. Denies any dizziness, diaphoresis, palpitations or weakness. Symptoms resolved on their own, she called her PCP and was instructed to come to the hospital. On presentation BP stable, labs significant for Cr 1.4. CT head no acute process. 02/15/2021 Echo with Bubble study being completed at bedside this morning. Reports headache earlier this morning across the top of her head. Double vision persists but denies balance issues. Denies numbness tingling or weakness. Carotid Doppler reported less than 50% stenosis of the bilateral internal carotid arteries, no evidence of hemodynamic significant stenosis. Neuro workup continues- Scheduled for a brain MRI/MR angio head this afternoon. Objective - Vital Signs Vital signs: Vital Signs Temp 98.4 F 02/15/21 14:47 Pulse 74 02/15/21 14:47 Resp 18 02/15/21 14:47 BP 132/76 02/15/21 14:47 Pulse Ox 97 02/15/21 14:47 Intake & Output 02/14/21 02/15/21 02/15/21 18:59 06:59 18:59 Intake Total 240 Balance 240 Weight 102.058 kg Intake: Oral 240 Other: Voiding Method Toilet Toilet # Voids 2 3 - Exam General: Sitting up in bed, NAD. Eyes: PERRL, EOMI, conjunctiva normal HENT: normocephalic, mucus membranes moist Neck: supple, no JVD Lungs: normal respiratory effort, no wheezes or rales CV: Regular rate and rhythm, no murmur. Peripheral pulses 2+ Abdomen: soft, nondistended, no organomegaly Skin: warm and dry. Neuro: A&Ox3, normal mood and affect - Labs CBC & Chem 7: 02/13/21 18:30 02/13/21 18:30 Labs: Abnormal Lab Results - Last 24 Hours (Table) 02/15/21 Range/Units 04:35 HDL Cholesterol 38.0 L (40.0-60.0) mg/dL Assessment and Plan Assessment: (1) Hemianopia of right eye Current Visit: Yes Status: Acute Code(s): H53.461 - HOMONYMOUS BILATERAL FIELD DEFECTS, RIGHT SIDE SNOMED Code(s): 86952575 (2) TIA (transient ischemic attack) Current Visit: Yes Status: Acute Code(s): G45.9 - TRANSIENT CEREBRAL ISCHEMIC ATTACK, UNSPECIFIED SNOMED Code(s): 804405800 (3) GERD (gastroesophageal reflux disease) Current Visit: No Status: Acute Code(s): K21.9 - GASTRO-ESOPHAGEAL REFLUX DISEASE WITHOUT ESOPHAGITIS SNOMED Code(s): 694082822 (4) hypertension (5) mild acute renal failure Plan: Continue on current medication regime ,monitoring and symptomatic treatment. Evaluated by neurology with neuro workup in progress. Brain MRI/MRA pending. Maintained on dual antiplatelet therapy. Close monitoring of renal function with repeat labs ordered for a.m. The impression and plan of care has been dictated as directed. : I performed a history and examination of this patient, discussed the same with the dictator. I agree with the dictator's note ,documented as a scribe. Any additional findings or plans will be noted.
[2021-02-15] MEDS ORDERED: MELATONIN 5 MG TABLET PO PRN (20:17)
[2021-02-15] MEDS: CLOPIDOGREL 75 MG TAB PO SCH (20:48)
[2021-02-15] MEDS ORDERED: ATORVASTATIN 40 MG TAB PO SCH (21:00)
[2021-02-16] MEDS: SODIUM CHLORIDE 0.9% 1,000 ML IV SCH (03:36)
[2021-02-16] MEDS: SPIRONOLACTONE 25 MG TAB PO SCH (07:54)
[2021-02-16] MEDS: METOPROLOL SUCCINATE (ER) 50 MG TAB.ER.24H PO SCH (07:54)
[2021-02-16] MEDS: ASPIRIN 81 MG PO SCH (07:54)
[2021-02-16] MEDS: PANTOPRAZOLE 40 MG TABLET PO SCH (07:54)
[2021-02-16 07:58] VITALS: BP 115/69; PULSE 71; RESP 16; TEMP 97.5
[2021-02-16] MEDS: ACETAMINOPHEN TAB 325 MG TAB PO PRN (08:01)
[2021-02-16 13:16] LABS: African American GFR (CKD) 47.4 (60.0-200.0); Anion Gap 7.7 mmol/L (4.00-12.00); BUN/Creat Ratio 16.67 Ratio (12.00-20.00); Calcium 8.8 mg/dL (8.7-10.3); Carbon Dioxide 25.3 mmol/L (21.6-31.8); Non-African American GFR(CKD) 40.9 (60.0-200.0); Potassium 4.3 mmol/L (3.5-5.5)
--- NOTE | 2021-02-16 15:13 | P.DS ---
Providers Date of admission: 02/13/21 22:43 Expected date of discharge: 02/16/21 Attending physician: Mario Jose MD Consults: 02/13/21 21:48 Consult Physician Urgent Consulting Provider: Edgar Bennett Consult Reason/Comments: tia Do you want consulting provider notified?: Yes Primary care physician: [facility] Course: Final Diagnoses: (1) Hemianopia of right eye Current Visit: Yes Status: Acute Code(s): H53.461 - HOMONYMOUS BILATERAL FIELD DEFECTS, RIGHT SIDE SNOMED Code(s): 44527103 (2) TIA (transient ischemic attack) Current Visit: Yes Status: Acute Code(s): G45.9 - TRANSIENT CEREBRAL ISCHEMIC ATTACK, UNSPECIFIED SNOMED Code(s): 180209806 (3) GERD (gastroesophageal reflux disease) Current Visit: No Status: Acute Code(s): K21.9 - GASTRO-ESOPHAGEAL REFLUX DISEASE WITHOUT ESOPHAGITIS SNOMED Code(s): 976841716 (4) hypertension (5) mild acute renal failure Hospital course:Karli Hughes is an 85 yo F with PMH of HLD, CKD who presented to the ED after experiencing transient R sided blindness. 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 She tried closing her eyes and when she reopened them had complete R sided blindness. Denies any dizziness, diaphoresis, palpitations or weakness. Symptoms resolved on their own, she called her PCP and was instructed to come to the hospital. On presentation BP stable, labs significant for Cr 1.4. CT head no acute process. 02/15/2021 Echo with Bubble study being completed at bedside this morning. Reports headache earlier this morning across the top of her head. Double vision persists but denies balance issues. Denies numbness tingling or weakness. Carotid Doppler reported less than 50% stenosis of the bilateral internal carotid arteries, no evidence of hemodynamic significant stenosis. Neuro workup continues- Scheduled for a brain MRI/MR angio head this afternoon. Significant clinical improvement. Denies chest pain, palpitations or shortness of breath. Sitting up in recliner currently with no further visual symptoms.Maintained on dual antiplatelet therapy. Neurology workup completed, including MRI of brain report. Age-related changes of atrophy and chronic small vessel ischemia, MRA of the head reported normal craig of Pena, no aneurysm. Patient will be discharged home today in a stable condition with guarded prognosis pending final clearance from neurology. Patient advised to follow-up with ophthalmology outpatient for further evaluation. The impression and plan of care has been dictated as directed. : I performed a history and examination of this patient, discussed the same with the dictator. I agree with the dictator's note ,documented as a scribe. Any additional findings or plans will be noted. Patient Condition at Discharge: Stable Plan - Discharge Summary Discharge Rx Participant: No New Discharge Prescriptions: New Pantoprazole [Protonix] 40 mg PO AC-BRKFST #30 tablet. Atorvastatin [Lipitor] 40 mg PO HS #30 tab Clopidogrel [Plavix] 75 mg PO DAILY@2100 #30 tab Continue Spironolactone 50 mg PO BID Metoprolol Succinate (ER) [Toprol XL] 50 mg PO DAILY Acetaminophen Tab [Tylenol] 1,000 mg PO Q6HR PRN PRN Reason: Pain Or Fever > 100.5 Nitroglycerin Sl Tabs [Nitrostat] 0.4 mg SUBLINGUAL Q5M PRN PRN Reason: Chest Pain Aspirin EC [Ecotrin Low Dose] 81 mg PO DAILY 21 Days #0 Ubidecarenone [Co Q-10] 200 mg PO HS Melatonin 20 mg PO HS PRN PRN Reason: SLEEP Albuterol Sulfate [Accuneb] 0.63 mg INHALATION RT-TID PRN PRN Reason: Shortness Of Breath Discontinued Rosuvastatin [Crestor] 10 mg PO HS Discharge Medication List Spironolactone 50 mg PO BID 01/31/16 [History] Acetaminophen Tab [Tylenol] 1,000 mg PO Q6HR PRN 02/13/21 [History] Albuterol Sulfate [Accuneb] 0.63 mg INHALATION RT-TID PRN 02/13/21 [History] Melatonin 20 mg PO HS PRN 02/13/21 [History] Metoprolol Succinate (ER) [Toprol XL] 50 mg PO DAILY 02/13/21 [History] Nitroglycerin Sl Tabs [Nitrostat] 0.4 mg SUBLINGUAL Q5M PRN 02/13/21 [History] Ubidecarenone [Co Q-10] 200 mg PO HS 06/01/21 [History] Aspirin EC [Ecotrin Low Dose] 81 mg PO DAILY 21 Days #0 02/16/21 [Rx] Atorvastatin [Lipitor] 40 mg PO HS #30 tab 02/16/21 [Rx] Clopidogrel [Plavix] 75 mg PO DAILY@2100 #30 tab 02/16/21 [Rx] Pantoprazole [Protonix] 40 mg PO AC-MAGANKFST #30 tablet. 02/16/21 [Rx] Follow up Appointment(s)/Referral(s): Raj Rubalcava MD [STAFF PHYSICIAN] - 1 Week Francine Rosas MD [Primary Care Provider] - 3 Days Ambulatory/Diagnostic Orders: Complete Blood Count w/diff [LAB.AMB] Time Frame: 3 Days, Location: None Selected Patient Instructions/Handouts: Transient Ischemic Attack (GEN) Activity/Diet/Wound Care/Special Instructions: Dual antiplatelet medications with aspirin 81 mg and Plavix 75 mg. After 3 weeks, stop aspirin and maintain on single agent Plavix 75 mg daily.
--- NOTE | 2021-02-16 15:55 | P.PN ---
Subjective Progress Note Date: 02/16/21 Patient is sitting comfortably in the recliner, ready to go home. Offers no complaints. No further visual symptoms. No further neurological symptoms. Objective - Vital Signs Vital signs: Vital Signs Temp 97.5 F L 02/16/21 07:00 Pulse 71 02/16/21 07:00 Resp 16 02/16/21 07:00 BP 115/69 02/16/21 07:00 Pulse Ox 96 02/16/21 07:00 Intake & Output 02/15/21 02/16/21 02/16/21 18:59 06:59 18:59 Intake Total 477 Balance 477 Intake: Oral 477 Other: Voiding Method Toilet Toilet # Voids 3 1 - Exam Patient's mental status, speech and language sessions normal. Detailed testing deferred. - Labs CBC & Chem 7: 02/13/21 18:30 02/16/21 04:30 Labs: Abnormal Lab Results - Last 24 Hours (Table) 02/16/21 Range/Units 04:30 Est GFR (CKD-EPI)AfAm 47.4 L (60.0-200.0) Est GFR (CKD-EPI)NonAf 40.9 L (60.0-200.0) Assessment and Plan Assessment: * Amaurosis fugax, right eye, symptoms resolved in 10-15 minutes. No acute stroke noted on the MRI of the brain. * Long-standing history of intermittent diplopia, unclear cause. * Macrocytosis * Hypertension * Coronary artery disease * Hyperlipidemia * Mild renal insufficiency Plan: * MRI of the brain showed age-related changes of atrophy and chronic small vessel ischemia. * MRA of the head showed normal variation MRA benton of Pena. No aneurysm. * Carotid Doppler showed less than 50% stenosis of bilateral ICA. Mild atherosclerotic plaque at the bilateral common carotid artery bifurcations. Antegrade flow in both vertebral arteries. * 2-D echo with bubble study was negative for any PFO. No bubbles crossed the septum. 2-D echo performed recently outpatient showed normal left-ventricular size with normal function. EF is 55%. There is mild left ventricular hypertrophy. Normal right ventricular size and normal function. There is mi ld to moderate aortic regurgitation. * Fasting a.m. lipid panel with cholesterol 135, LDL 75, HDL 38 and triglycerides 110. Patient was on Crestor 10 mg daily. Currently switched to Lipitor 80 mg. Patient states she had side effects from statins with leg pains in the past. We will increase Lipitor to 40 mg.. If cannot tolerate then may revert back to Crestor. * Hemoglobin A1c 5.5. * Patient has macrocytosis, B12 464 and folate canceled by primary. * Agree with starting dual antiplatelet medications with aspirin 81 mg and Plavix 75 mg. After 3 weeks, stop aspirin and maintain on single agent Plavix 75 mg daily. * Await acetylcholine receptor antibodies rule out ocular myasthenia. * Patient will follow with ophthalmology as an outpatient. * Patient has received moderna Covid vaccination first dose on 01/25/2021. Doubt would be related to the vaccination. Her second dose is due on 03/06/2021. * Neurologically clear for discharge. Addendum: Acetylcholine receptor antibody < 0.30 normal.
== END 2021-02-16 10:57 ==
LOC: EC 16:41 → 6NMEDSUR 22:43
PROVIDERS: ADMIT Family Medicine; ATTEND Family Medicine
DX: G45.9 Transient cerebral ischemic attack, unspecified (principal); H53.461 Homonymous bilateral field defects, right side; N17.9 Acute kidney failure, unspecified; I12.9 Hypertensive chronic kidney disease with stage 1 through stage 4 chronic kidney disease, or unspecified chronic kidney disease; N18.9 Chronic kidney disease, unspecified; J45.909 Unspecified asthma, uncomplicated; D75.89 Other specified diseases of blood and blood-forming organs; K21.9 Gastro-esophageal reflux disease without esophagitis; I25.10 Atherosclerotic heart disease of native coronary artery without angina pectoris; E78.5 Hyperlipidemia, unspecified; L98.9 Disorder of the skin and subcutaneous tissue, unspecified; E66.9 Obesity, unspecified; Z68.39 Body mass index [BMI] 39.0-39.9, adult; Z20.822 Contact with and (suspected) exposure to COVID-19; Z79.82 Long term (current) use of aspirin; Z79.899 Other long term (current) drug therapy; Z88.0 Allergy status to penicillin; Z88.2 Allergy status to sulfonamides; Z91.041 Radiographic dye allergy status; Z86.73 Personal history of transient ischemic attack (TIA), and cerebral infarction without residual deficits; Z86.14 Personal history of Methicillin resistant Staphylococcus aureus infection; Z90.49 Acquired absence of other specified parts of digestive tract; Z98.891 History of uterine scar from previous surgery; Z98.42 Cataract extraction status, left eye; Z98.41 Cataract extraction status, right eye; Z98.890 Other specified postprocedural states; Z82.49 Family history of ischemic heart disease and other diseases of the circulatory system
CPT/HCPCS: 96361 ×4; 96374; 99285; 36415; 93005; 93308; 83519; 80061; 80053; 80048; 84443; 82607; 82746; 84484; 85025; 85610; 85730; 83036; 87635; 71046; 93880; 70450; 70544; 70551; G0378 ×4; J2060

== ENCOUNTER 2021-05-23 18:40 | Emergency (ER) | payer MEDICARE ==
[2021-05-23] MEDS ORDERED: ACETAMINOPHEN TAB 500 MG TAB PO STA (18:52)
[2021-05-23] MEDS ORDERED: IBUPROFEN 600 MG TAB PO STA (18:52)
--- NOTE | 2021-05-23 18:58 | ED ---
General Adult HPI - General Chief complaint: Weakness Stated complaint: Fall, Weakness Time Seen by Provider: 05/23/21 18:45 Source: patient, EMS, RN notes reviewed, old records reviewed Mode of arrival: EMS Limitations: no limitations - History of Present Illness Initial comments: This is an 85 old female presents emergency Department complaining of ge neralized weakness. Patient states she felt very hot and had some chills that she went to bed and wrapped herself up complaint is when she awoke she got to go to the bathroom and she was so weak she fell to the ground. Patient denies any injury after falling per patient denies hitting her head or any neck pain. Patient denies any extremity pain. Patient states she's got no focal weakness only generalized weakness. Patient denies any new cough patient states she was has a little bit of a chronic CHANGE. PATIENT DENIES ANY DIFFICULTY BREATHING OR SHORTNESS OF BREATH PER PATIENT DENIES ANY PALPITATIONS OR ANY CHEST PAIN. PATIENT DENIES ANY ABDOMINAL PAIN PATIENT DENIES ANY NAUSEA VOMITING DIARRHEA. PATIENT DENIES ANY AREAS OF ERYTHEMA OR ANY NEW LESIONS OR RASHES. PATIENT STATES SHE GOT THE FIRST SHOT OF COVID VACCINE AND THEN HAD A STROKE AND SO SHE NEVER GOT THE SECOND SHOT. - Related Data Home Medications Medication Instructions Recorded Confirmed Spironolactone 50 mg PO BID 01/31/16 05/23/21 Albuterol Sulfate [Accuneb] 0.63 mg INHALATION RT-TID PRN 02/13/21 05/23/21 Metoprolol Succinate (ER) [Toprol 50 mg PO DAILY 02/13/21 05/23/21 XL] Nitroglycerin Sl Tabs [Nitrostat] 0.4 mg SUBLINGUAL Q5M PRN 02/13/21 05/23/21 Ubidecarenone [Co Q-10] 200 mg PO HS 02/13/21 05/23/21 Clopidogrel [Plavix] 75 mg PO DAILY 05/23/21 05/23/21 Furosemide [Lasix] 40 mg PO DAILY 05/23/21 05/23/21 Rosuvastatin [Crestor] 20 mg PO HS 05/23/21 05/23/21 Previous Rx's Medication Instructions Recorded Pantoprazole [Protonix] 40 mg PO CADEN #30 nancy. 02/16/21 Allergies Allergy/AdvReac Type Severity Reaction Status Date / Time Iodine and Iodide Containing Allergy Rash/Hives Verified 05/23/21 20:39 Produc Penicillins Allergy Dyspnea Verified 05/23/21 20:39 Sulfa (Sulfonamide Allergy Rash/Hives Verified 05/23/21 20:39 Antibiotics) Review of Systems ROS Statement: Those systems with pertinent positive or pertinent negative responses have been documented in the HPI. ROS Other: All systems not noted in ROS Statement are negative. 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), hx ulcer, hiatal hernia, yeast infection left arm, "kidneys functioning at 34", urinary leakage-wears pad History of Any Multi-Drug Resistant Organisms: MRSA Date of last positivie culture/infection: 8-10 yrs ago MDRO Source:: left eyebrow Past Surgical History: Section, Cholecystectomy, Tonsillectomy Additional Past Surgical History / Comment(s): BILAT CATARACTS, breast biopsy-[place],6--16 lap heraclio Past Anesthesia/Blood Transfusion Reactions: Previous Problems w/ Anesthesia, Motion Sickness Additional Past Anesthesia/Blood Transfusion Reaction / Comment(s): novocaine passed out in dentist chair- rapid heart rate Past Psychological History: No Psychological Hx Reported Smoking Status: Never smoker Past Alcohol Use History: None Reported Past Drug Use History: None Reported - Past Family History Mother Family Medical History: Pulmonary Embolus Father Family Medical History: AFIB Additional Family Medical History / Comment(s): cabg General Exam - General Exam Comments Initial Comments: GENERAL: Patient is well-developed and well-nourished. Patient is nontoxic and well- hydrated and is in mild distress. Patient has oral temperature of 100.7. ENT: Neck is soft and supple. No significant lymphadenopathy is noted. Oropharynx is clear. Moist mucous membranes. Neck has full range of motion without eliciting any pain. EYES: The sclera were anicteric and conjunctiva were pink and moist. Extraocular movements were intact and pupils were equal round and reactive to light. Eyelids were unremarkable. PULMONARY: Unlabored respirations. Good breath sounds bilaterally. No audible rales rhonchi or wheezing was noted. CARDIOVASCULAR: There is a regular rate and rhythm without any murmurs gallops or rubs. ABDOMEN: Soft and nontender with normal bowel sounds. SKIN: Skin is clear with no lesions or rashes and otherwise unremarkable. NEUROLOGIC: Patient is alert and oriented x3. Cranial nerves II through XII are grossly intact. Motor and sensory are also intact. Normal speech, volume and content. Symmetrical smile. MUSCULOSKELETAL: Normal extremities with adequate strength and full range of motion. LYMPHATICS: No significant lymphadenopathy is noted PSYCHIATRIC: Normal psychiatric evaluation. Limitations: no limitations Course Vital Signs 05/23/21 05/23/21 05/23/21 18:44 18:52 19:53 Temperature 99.1 F 100.7 F H Pulse Rate 79 75 Respiratory 17 20 Rate Blood Pressure 127/62 119/82 O2 Sat by Pulse 95 97 Oximetry Medical Decision Making - Medical Decision Making EKG shows no sinus rhythm at 72 bpm HI interval is 168 QRS 76 QT interval 398 QTC is 435. Patient's EKG shows no ST segment elevation or depression. Patient's chest x-ray showed no acute abnormality. Patient's fever came down and she felt considerably better. Patient was able to ambulate without problem and no longer felt weak. Patient wanted to go home and felt comfortable going home. - Lab Data Result diagrams: 05/23/21 19:26 05/23/21 19:26 Lab Results 05/23/21 05/23/21 05/23/21 Range/Units 19:26 19:26 19:26 WBC 8.4 (3.8-10.6) k/uL RBC 3.99 (3.80-5.40) m/uL Hgb 13.8 (11.4-16.0) gm/dL Hct 40.8 (34.0-46.0) % MCV 102.2 H (80.0-100.0) fL MCH 34.5 (25.0-35.0) pg MCHC 33.8 (31.0-37.0) g/dL RDW 12.6 (11.5-15.5) % Plt Count 135 L (150-450) k/uL MPV 9.6 Neutrophils % 88 % Lymphocytes % 6 % Monocytes % 5 % Eosinophils % 1 % Basophils % 0 % Neutrophils # 7.4 (1.3-7.7) k/uL Lymphocytes # 0.5 L (1.0-4.8) k/uL Monocytes # 0.4 (0-1.0) k/uL Eosinophils # 0.1 (0-0.7) k/uL Basophils # 0.0 (0-0.2) k/uL Macrocytosis Slight PT 9.9 (9.0-12.0) sec INR 0.9 (<1.2) APTT 20.8 L (22.0-30.0) sec Sodium 135 L (137-145) mmol/L Potassium 4.5 (3.5-5.1) mmol/L Chloride 104 (98-107) mmol/L Carbon Dioxide 24 (22-30) mmol/L Anion Gap 7 mmol/L BUN 22 H (7-17) mg/dL Creatinine 1.46 H (0.52-1.04) mg/dL Est GFR (CKD-EPI)AfAm 37 (>60 ml/min/1.73 sqM) Est GFR (CKD-EPI)NonAf 32 (>60 ml/min/1.73 sqM) Glucose 113 H (74-99) mg/dL Plasma Lactic Acid Aubrey (0.7-2.0) mmol/L Calcium 9.1 (8.4-10.2) mg/dL Total Bilirubin 0.6 (0.2-1.3) mg/dL AST 29 (14-36) U/L ALT 23 (4-34) U/L Alkaline Phosphatase 103 (38-126) U/L Total Protein 6.0 L (6.3-8.2) g/dL Albumin 3.7 (3.5-5.0) g/dL Urine Color Urine Appearance (Clear) Urine pH (5.0-8.0) Ur Specific Allen (1.001-1.035) Urine Protein (Negative) Urine Glucose (UA) (Negative) Urine Ketones (Negative) Urine Blood (Negative) Urine Nitrite (Negative) Urine Bilirubin (Negative) Urine Urobilinogen (<2.0) mg/dL Ur Leukocyte Esterase (Negative) Urine RBC (0-5) /hpf Urine WBC (0-5) /hpf Ur Squamous Epith Cells (0-4) /hpf Urine Bacteria (None) /hpf Urine Mucus (None) /hpf Coronavirus (PCR) (Not Detectd) 05/23/21 05/23/21 05/23/21 Range/Units 19:26 19:26 20:16 WBC (3.8-10.6) k/uL RBC (3.80-5.40) m/uL Hgb (11.4-16.0) gm/dL Hct (34.0-46.0) % MCV (80.0-100.0) fL MCH (25.0-35.0) pg MCHC (31.0-37.0) g/dL RDW (11.5-15.5) % Plt Count (150-450) k/uL MPV Neutrophils % % Lymphocytes % % Monocytes % % Eosinophils % % Basophils % % Neutrophils # (1.3-7.7) k/uL Lymphocytes # (1.0-4.8) k/uL Monocytes # (0-1.0) k/uL Eosinophils # (0-0.7) k/uL Basophils # (0-0.2) k/uL Macrocytosis PT (9.0-12.0) sec INR (<1.2) APTT (22.0-30.0) sec Sodium (137-145) mmol/L Potassium (3.5-5.1) mmol/L Chloride (98-107) mmol/L Carbon Dioxide (22-30) mmol/L Anion Gap mmol/L BUN (7-17) mg/dL Creatinine (0.52-1.04) mg/dL Est GFR (CKD-EPI)AfAm (>60 ml/min/1.73 sqM) Est GFR (CKD-EPI)NonAf (>60 ml/min/1.73 sqM) Glucose (74-99) mg/dL Plasma Lactic Acid Aubrey 1.5 (0.7-2.0) mmol/L Calcium (8.4-10.2) mg/dL Total Bilirubin (0.2-1.3) mg/dL AST (14-36) U/L ALT (4-34) U/L Alkaline Phosphatase (38-126) U/L Total Protein (6.3-8.2) g/dL Albumin (3.5-5.0) g/dL Urine Color Yellow Urine Appearance Clear (Clear) Urine pH 6.0 (5.0-8.0) Ur Specific Allen 1.017 (1.001-1.035) Urine Protein 1+ H (Negative) Urine Glucose (UA) Negative (Negative) Urine Ketones Negative (Negative) Urine Blood Trace H (Negative) Urine Nitrite Negative (Negative) Urine Bilirubin Negative (Negative) Urine Urobilinogen <2.0 (<2.0) mg/dL Ur Leukocyte Esterase Negative (Negative) Urine RBC <1 (0-5) /hpf Urine WBC <1 (0-5) /hpf Ur Squamous Epith Cells 1 (0-4) /hpf Urine Bacteria Rare H (None) /hpf Urine Mucus Rare H (None) /hpf Coronavirus (PCR) Not Detected (Not Detectd) Disposition Clinical Impression: Generalized weakness, Viral illness Disposition: HOME SELF-CARE Condition: Good Instructions (If sedation given, give patient instructions): Viral Syndrome (ED), Weakness (ED) Additional Instructions: Patient is to return if there is any worsening symptoms or any new symptoms. She continue taking Motrin and Tylenol for fever Is patient prescribed a controlled substance at d/c from ED?: No Referrals: Francine Rosas MD [Primary Care Provider] - 1-2 days Time of Disposition: 21:01
[2021-05-23 19:37] LABS: Basophils % (A) 0 %; Eosinophils # (A) 0.1 k/uL (0-0.7); Eosinophils % (A) 1 %; HCT 40.8 % (34.0-46.0); HGB 13.8 gm/dL (11.4-16.0); Lymphocytes # (A) 0.5 k/uL (1.0-4.8); Lymphocytes % (A) 6 %; MCH 34.5 pg (25.0-35.0); MCHC 33.8 g/dL (31.0-37.0); MCV 102.2 fL (80.0-100.0); Macrocytosis Slight; Mean Platelet Volume 9.6; Monocytes # (A) 0.4 k/uL (0-1.0); Monocytes % (A) 5 %; Neutrophils # (A) 7.4 k/uL (1.3-7.7); Neutrophils % (A) 88 %; Platelet Count 135 k/uL (150-450); RBC 3.99 m/uL (3.80-5.40); RDW 12.6 % (11.5-15.5); WBC 8.4 k/uL (3.8-10.6)
[2021-05-23 19:45] LABS: Albumin 3.7 g/dL (3.5-5.0); Calcium 9.1 mg/dL (8.4-10.2); Potassium 4.5 mmol/L (3.5-5.1); Total Bilirubin 0.6 mg/dL (0.2-1.3)
[2021-05-23 19:53] LABS: INR 0.9 (<1.2); Prothrombin Time 9.9 sec (9.0-12.0)
[2021-05-23 19:55] LABS: Partial Thromboplastin Time 20.8 sec (22.0-30.0)
[2021-05-23 19:56] VITALS: RESP 20
--- NOTE | 2021-05-23 20:22 | XR ---
EXAMINATION TYPE: XR chest 2V DATE OF EXAM: 05/23/2021 COMPARISON: 02/13/2021 HISTORY: Fever TECHNIQUE: Frontal and lateral views of the chest are obtained. FINDINGS: There is no focal air space opacity, pleural effusion, or pneumothorax seen. The cardiac silhouette size is within normal limits. The osseous structures are intact. IMPRESSION: No acute cardiopulmonary process.
[2021-05-23 20:31] LABS: Appearance,Urine Clear (Clear); Bacteria,Urine Rare /hpf; Bilirubin,Urine Negative (Negative); Blood,Urine Trace (Negative); Color,Urine Yellow; Glucose,Urine (UA) Negative (Negative); Ketones,Urine Negative (Negative); Leukocyte Esterase,Urine Negative (Negative); Mucus,Urine Rare /hpf; Nitrite,Urine Negative (Negative); Protein,Urine 1+ (Negative); RBC,Urine <1 /hpf (0-5); Specific Gravity,Urine 1.017 (1.001-1.035); Squamous Epithelial Cell,Urine 1 /hpf (0-4); Urobilinogen,Urine <2.0 mg/dL (<2.0); WBC,Urine <1 /hpf (0-5)
[2021-05-23 21:12] VITALS: BP 126/56; PULSE 70; TEMP 98.6
== END 2021-05-23 21:18 | disposition home or self-care (01) ==
LOC: EC 18:40
DX: R53.1 Weakness (principal); B34.9 Viral infection, unspecified; J45.909 Unspecified asthma, uncomplicated; I10 Essential (primary) hypertension; Z86.718 Personal history of other venous thrombosis and embolism; Z23 Encounter for immunization; Z88.0 Allergy status to penicillin; Z88.2 Allergy status to sulfonamides; Z88.8 Allergy status to other drugs, medicaments and biological substances; Z20.822 Contact with and (suspected) exposure to COVID-19
CPT/HCPCS: 36415; 71046; 80053; 81001; 83605; 85025; 85610; 85730; 87040; 87635; 93005; 99285

== ENCOUNTER → 2022-03-21 | Outpatient (CLI) | payer MEDICARE ==
--- NOTE | 2022-03-21 08:34 | MM ---
Reason for Exam: Clinical finding. Last mammogram was performed 4 year(s) and 3 month(s) ago. Patient History: Menarche at age 11. First Full-Term at age 21. Postmenopausal. Estrogen for 7 months starting at age 58. Progesterone for 7 months starting at age 58. Excisional Biopsy on the Right side. Excisional Biopsy on the Right side. Excisional Biopsy on the Left side. Maternal aunt had breast cancer at or over age 50. Tissue Density: The breast tissue is almost entirely fat. Findings: Analyzed By CAD. No distinct mass or distortion. No suspicious calcifications evident. Overall Assessment: Negative, BI-RAD 1 Management: Screening Mammogram of both breasts in 1 year. A clinical breast exam by your physician is recommended on an annual basis and results should be correlated with mammographic findings. This exam should not preclude additional follow-up of suspicious palpable abnormalities. Results were given to the patient verbally at the time of exam. Electronically signed and approved by: Lazaro Rodriguez M.D. Radiologis
== END | disposition home or self-care (01) ==
LOC: RADMAMWWP 08:07
PROVIDERS: ATTEND Family Medicine
DX: R92.8 Other abnormal and inconclusive findings on diagnostic imaging of breast (principal); Z78.0 Asymptomatic menopausal state; Z80.3 Family history of malignant neoplasm of breast
CPT/HCPCS: 77066; G0279; 77062

== ENCOUNTER → 2022-04-08 | Outpatient (CLI) | payer MEDICARE ==
--- NOTE | 2022-04-08 07:31 | US ---
EXAMINATION TYPE: US kidneys/renal and bladder DATE OF EXAM: 04/08/2022 COMPARISON: NONE CLINICAL HISTORY: N18.30 CHRONIC KIDNEY DISEASE, STAGE 3 UNSPECIFIED. CKD EXAM MEASUREMENTS: Right Kidney: 8.9 x 4.0 x 3.8 cm Left Kidney: 8.9 x 4.3 x 3.5 cm Right Kidney: Simple cystic area upper pole = 2.2 x 1.9 x 2.1cm. Previous measurement 1.1 cm. Left Kidney: no evidence of hydronephrosis Bladder: not fully distended Bilateral Jets seen: no IMPRESSION: 1. Simple cyst superior pole right kidney
== END | disposition home or self-care (01) ==
LOC: RADUSWWP 06:55
PROVIDERS: ATTEND Internal Medicine Nephrology
DX: N18.30 Chronic kidney disease, stage 3 unspecified (principal); N28.1 Cyst of kidney, acquired
CPT/HCPCS: 76770

== ENCOUNTER → 2023-02-06 | Outpatient (CLI) | payer MEDICARE ==
--- NOTE | 2023-02-06 12:38 | CT ---
EXAMINATION TYPE: CT chest wo con CT DLP: 601 mGycm, Automated exposure control for dose reduction was used. DATE OF EXAM: 02/06/2023 11:50 AM COMPARISON: CT chest 11/10/2013. CLINICAL INDICATION:Female, 87 years old with history of R05.3, J45.909; PHH, Chronic cough and short ness of breath. TECHNIQUE: Multiple axial images were obtained through the chest. Sagittal and coronal reformats were created for review. Contrast used: none. Oral contrast used: none. FINDINGS: LUNGS/ PLEURA: Right posterior Bochdalek hernia containing fat. No evidence for focal consolidation, pneumothorax or pleural effusion. Mild centrilobular emphysema changes are present. AIRWAY: Patent and unremarkable. HEART: Size within normal limits. Coronary artery atherosclerosis. MEDIASTINUM: No gross evidence of adenopathy. Small hiatal hernia. VASCULATURE: No aortic aneurysm. MUSCULOSKELETAL: Moderate disc degeneration changes are present throughout the thoracolumbar spine. SOFT TISSUES/LYMPH NODES: Unremarkable. LOWER NECK: No significant findings. UPPER ABDOMEN: The gallbladder surgically absent. IMPRESSION: 1. No evidence for acute thoracic process to explain the patient's cough. No focal consolidation, p neumothorax or pleural fusion. 2. Mild emphysema changes. 3. Small hiatal hernia. 4. Right posterior Bochdalek hernia containing fat.
== END | disposition home or self-care (01) ==
LOC: RADCTMAIN 11:27
PROVIDERS: ATTEND Family Medicine
DX: J43.2 Centrilobular emphysema (principal); J45.909 Unspecified asthma, uncomplicated; K44.9 Diaphragmatic hernia without obstruction or gangrene; K66.8 Other specified disorders of peritoneum
CPT/HCPCS: 71250

== ENCOUNTER → 2023-05-15 | Outpatient (CLI) | payer MEDICARE ==
--- NOTE | 2023-05-18 23:41 | MM ---
Reason for Exam: Screening (asymptomatic). Last mammogram was performed 1 year(s) and 1 month(s) ago. Patient History: Menarche at age 11. First Full-Term at age 21. Postmenopausal. Estrogen for 7 months starting at age 58. Progesterone for 7 months starting at age 58. Excisional Biopsy on the Right side. Excisional Biopsy on the Right side. Excisional Biopsy on the Left side. Maternal aunt had breast cancer at or over age 50. Prior Study Comparison: 06/16/2015 Right Diagnostic Mammogram, [facility]. 12/19/2017 Bilateral Screening Mammogram, [facility]. 03/21/2022 Bilateral MG 3D diag mammo w/cad [place], [facility]. Tissue Density: The breast tissue is almost entirely fat. Findings: Analyzed By CAD. There is no suspicious group of microcalcifications or new suspicious mass in either breast. Overall Assessment: Negative, BI-RAD 1 Management: Screening Mammogram of both breasts in 1 year. . Patient should continue monthly self-breast exams. A clinical breast exam by your physician is recommended on an annual basis. This exam should not preclude additional follow-up of suspicious palpable abnormalities. Note on Mayra scores and lifetime risk: 1. A Mayra score greater than 3% is considered moderate risk. If this is the case, consider specialist referral to assess eligibility for a risk reducing agent. 2. If overall lifetime risk for the development of breast cancer is 20% or higher, the patient may qualify for future screening with alternating mammogram and breast MRI. Electronically signed and approved by: Dany Thompson M.D. Radiologist
== END | disposition home or self-care (01) ==
LOC: RADMAMWWP 09:44
PROVIDERS: ATTEND Family Medicine
DX: Z12.31 Encounter for screening mammogram for malignant neoplasm of breast (principal); Z78.0 Asymptomatic menopausal state; Z80.3 Family history of malignant neoplasm of breast
CPT/HCPCS: 77063; 77067